=== PATIENT | female | born 1995 ===

== ENCOUNTER 2023-05-20 10:47 | Outpatient (CLI) | payer OTHER | END 2023-05-20 11:35 | disposition home or self-care (01) | LOC: PRENATAL 10:47 | PROVIDERS: ATTEND Obstetrics & Gynecology Maternal & Fetal Medicine | DX: O36.80X0 Pregnancy with inconclusive fetal viability, not applicable or unspecified (principal); Z36.82 Encounter for antenatal screening for nuchal translucency; O10.019 Pre-existing essential hypertension complicating pregnancy, unspecified trimester; Z36.9 Encounter for antenatal screening, unspecified; O34.219 Maternal care for unspecified type scar from previous cesarean delivery; O09.219 Supervision of pregnancy with history of pre-term labor, unspecified trimester; O14.90 Unspecified pre-eclampsia, unspecified trimester; Z3A.11 11 weeks gestation of pregnancy ==

== ENCOUNTER 2023-07-20 12:50 | Outpatient (CLI) | payer OTHER | END 2023-07-20 12:51 | disposition home or self-care (01) | LOC: PRENATAL 12:50 | PROVIDERS: ATTEND Obstetrics & Gynecology Maternal & Fetal Medicine | DX: O35.3XX0 Maternal care for (suspected) damage to fetus from viral disease in mother, not applicable or unspecified (principal); O44.00 Complete placenta previa NOS or without hemorrhage, unspecified trimester; O10.019 Pre-existing essential hypertension complicating pregnancy, unspecified trimester; Z36.9 Encounter for antenatal screening, unspecified; O34.219 Maternal care for unspecified type scar from previous cesarean delivery; O09.219 Supervision of pregnancy with history of pre-term labor, unspecified trimester; O99.210 Obesity complicating pregnancy, unspecified trimester; Z3A.20 20 weeks gestation of pregnancy ==

== ENCOUNTER 2023-09-11 08:38 | Outpatient (CLI) | payer OTHER | END 2023-09-11 08:39 | disposition home or self-care (01) | LOC: PRENATAL 08:38 | PROVIDERS: ATTEND Obstetrics & Gynecology Maternal & Fetal Medicine | DX: O26.849 Uterine size-date discrepancy, unspecified trimester (principal); O10.019 Pre-existing essential hypertension complicating pregnancy, unspecified trimester; Z36.9 Encounter for antenatal screening, unspecified; O34.219 Maternal care for unspecified type scar from previous cesarean delivery; O09.219 Supervision of pregnancy with history of pre-term labor, unspecified trimester; O14.90 Unspecified pre-eclampsia, unspecified trimester; Z3A.28 28 weeks gestation of pregnancy ==

== ENCOUNTER 2023-10-09 09:49 | Outpatient (CLI) | payer OTHER | END 2023-10-09 09:50 | disposition home or self-care (01) | LOC: PRENATAL 09:49 | PROVIDERS: ATTEND Obstetrics & Gynecology Maternal & Fetal Medicine | DX: O26.849 Uterine size-date discrepancy, unspecified trimester (principal); O36.8199 Decreased fetal movements, unspecified trimester, other fetus; O10.019 Pre-existing essential hypertension complicating pregnancy, unspecified trimester; Z36.9 Encounter for antenatal screening, unspecified; O34.219 Maternal care for unspecified type scar from previous cesarean delivery; O09.219 Supervision of pregnancy with history of pre-term labor, unspecified trimester; O14.90 Unspecified pre-eclampsia, unspecified trimester; O99.210 Obesity complicating pregnancy, unspecified trimester; Z3A.32 32 weeks gestation of pregnancy ==

== ENCOUNTER 2023-11-06 08:32 | Outpatient (CLI) | payer OTHER | END 2023-11-06 08:33 | disposition home or self-care (01) | LOC: PRENATAL 08:32 | PROVIDERS: ATTEND Obstetrics & Gynecology Maternal & Fetal Medicine | DX: O26.849 Uterine size-date discrepancy, unspecified trimester (principal); O36.8199 Decreased fetal movements, unspecified trimester, other fetus; O10.019 Pre-existing essential hypertension complicating pregnancy, unspecified trimester; Z36.9 Encounter for antenatal screening, unspecified; O34.219 Maternal care for unspecified type scar from previous cesarean delivery; O09.219 Supervision of pregnancy with history of pre-term labor, unspecified trimester; O14.90 Unspecified pre-eclampsia, unspecified trimester; O99.210 Obesity complicating pregnancy, unspecified trimester; Z3A.36 36 weeks gestation of pregnancy ==